=== PATIENT | male | born 1985 | race Caucasian/White ===

== ENCOUNTER 2017-09-22 12:33 | Emergency (ER) | payer MEDICAID ==
--- NOTE | 2017-09-22 13:14 | EDM.PDOC ---
ED HPI GENERAL MEDICAL PROBLEM - General Chief Complaint: Skin Complaint Stated Complaint: SKIN RASH Time Seen by Provider: 09/22/17 13:13 Source of Information: Reports: Patient History Limitations: Reports: No Limitations - History of Present Illness INITIAL COMMENTS - FREE TEXT/NARRATIVE: pt arrived with a rash between his fingers ans some areas on his lega. He has had multiple episodes of scabies and he feels like this is probably scabies again. Onset: Gradual Duration: Day(s): Location: Reports: Upper Extremity, Left, Upper Extremity, Right, Lower Extremity, Left, Lower Extremity, Right Associated Symptoms: Reports: No Other Symptoms - Related Data Allergies Allergy/AdvReac Type Severity Reaction Status Date / Time No Known Allergies Allergy Verified 09/22/17 13:09 Home Meds: Home Meds NK [No Known Home Meds] 09/22/17 [History] ED ROS GENERAL - Review of Systems Review Of Systems: See Below Constitutional: Reports: No Symptoms HEENT: Reports: No Symptoms Respiratory: Reports: No Symptoms Cardiovascular: Reports: No Symptoms Endocrine: Reports: No Symptoms GI/Abdominal: Reports: No Symptoms : Reports: No Symptoms Skin: Reports: Other (pt has a rash on his hands and legs. He ) Neurological: Reports: No Symptoms ED EXAM, SKIN/RASH Exam: See Below Text/Narrative:: pt has a rash between his fingers and he has multiple spots onhis legs. Exam Limited By: No Limitations General Appearance: Alert, Mild Distress Ears: Normal External Exam Nose: Normal Inspection Throat/Mouth: Normal Inspection Head: Atraumatic Neck: Normal Inspection Respiratory/Chest: No Respiratory Distress Skin: Rash, Other (pt has a rash which looks quite typical of scabies. He has been itching it alot. This is between his fingers and spots on his legs. ) Course - Vital Signs Last Recorded V/S: Last Vital Signs Temp 36.6 C 09/22/17 13:10 Pulse 88 09/22/17 13:10 Resp 16 09/22/17 13:10 BP 126/78 09/22/17 13:10 Pulse Ox 97 09/22/17 13:10 Departure - Departure Time of Disposition: 13:18 Disposition: Home, Self-Care 01 Condition: Fair Clinical Impression: Scabies - Discharge Information Referrals: PCP,None [Primary Care Provider] - Forms: ED Department Discharge Care Plan Goals: clean all bedding and throws on chairs used, shower and apply permethrin lotion to the entire body except the face. leave on for 6-7 hours and then reshower repeat the application in 1 week to 10 days.
== END 2017-09-22 13:34 | disposition home or self-care (01) ==
LOC: JP.ED 12:33
DX: B86 Scabies (principal)
CPT/HCPCS: 99283

== ENCOUNTER 2019-11-14 20:28 | Emergency (ER) | payer MEDICAID ==
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
--- NOTE | 2019-11-15 11:05 | CR ---
CHEST: 2 view CLINICAL HISTORY:Dyspnea COMPARISON:None FINDINGS: The heart size, pulmonary vascularity and hilar structures are normal. No infiltrate effusion or pneumothorax is seen. IMPRESSION: No acute cardiopulmonary process.
== END 2019-11-14 22:07 | disposition home or self-care (01) ==
LOC: JP.ED 20:28
DX: S16.1XXA Strain of muscle, fascia and tendon at neck level, initial encounter (principal); S20.211A Contusion of right front wall of thorax, initial encounter; S80.212A Abrasion, left knee, initial encounter; F17.210 Nicotine dependence, cigarettes, uncomplicated; Y04.0XXA Assault by unarmed brawl or fight, initial encounter; Y92.511 Restaurant or cafe as the place of occurrence of the external cause
CPT/HCPCS: 71046; 71046-26; 80305-QW; 81001; 99282; 99283

== ENCOUNTER 2020-10-25 20:54 | Emergency (ER) | payer MEDICARE, MEDICAID ==
[2020-10-25] MEDS ORDERED: Ketorolac 30 MG/ML SDV IM ONE (21:24)
[2020-10-25] MEDS ORDERED: cefTRIAXone 1 GM, Lidocaine 1% 2.1 ML IM ONE ×2 (21:32)
--- NOTE | 2020-10-25 21:34 | EDM.PDOC ---
ED HPI GENERAL MEDICAL PROBLEM - General Chief Complaint: Skin Complaint Stated Complaint: INFECTED FINGER Time Seen by Provider: 10/25/20 21:05 Source of Information: Reports: Patient History Limitations: Reports: No Limitations - History of Present Illness INITIAL COMMENTS - FREE TEXT/NARRATIVE: Rigo is a 35-year-old male presenting to the ED for evaluation of a painful, red, swollen, and exquisitely tender left index finger. Patient states that his symptoms started 2 days ago and are worsening by the day. He thinks he may have had a fishhook embedded in his finger which he quickly removed 3 days ago when he was fishing on [place] [employer]. He denies any other injury to the finger. He denies any fever, chills, numbness or tingling, but does have some reduced range of motion of the finger due to swelling. left 1st digit Pain Score (Numeric/FACES): 8 - Related Data Allergies Allergy/AdvReac Type Severity Reaction Status Date / Time No Known Allergies Allergy Verified 10/25/20 21:14 Home Meds: Home Meds Naproxen [Naprosyn] 500 mg PO Q12HR 30 Days #60 tab 08/31/20 [Rx] Cyclobenzaprine HCl 10 mg PO TID PRN 09/27/20 [History] Ibuprofen [Ibu] 600 mg PO Q6H PRN 09/27/20 [History] Past Medical History HEENT History: Reports: Impaired Vision Genitourinary History: Reports: STD Musculoskeletal History: Reports: Other (See Below) Other Musculoskeletal History: R shoulder, R upper arm, R 1st and 2nd finger pain. 09/28/20 L arm, wrist and bicep pain Neurological History: Reports: Concussion Psychiatric History: Reports: PTSD Dermatologic History: Reports: Other (See Below) Other Dermatologic History: scabies - Infectious Disease History Infectious Disease History: Reports: Chicken Pox, Mononucleosis - Past Surgical History Head Surgeries/Procedures: Reports: None Musculoskeletal Surgical History: Reports: Arthroscopic Procedure, Other (See Below) Other Musculoskeletal Surgeries/Procedures:: R KNEE REPAIR, HERNIATED DISC Social & Family History - Tobacco Use Tobacco Use Status *Q: Never Tobacco User - Caffeine Use Caffeine Use: Reports: Coffee, Energy Drinks - Recreational Drug Use Recreational Drug Use: Yes Drug Use in Last 12 Months: No ED ROS GENERAL - Review of Systems Review Of Systems: See Below Constitutional: Reports: No Symptoms HEENT: Reports: No Symptoms Respiratory: Reports: No Symptoms Cardiovascular: Reports: No Symptoms Endocrine: Reports: No Symptoms GI/Abdominal: Reports: No Symptoms : Reports: No Symptoms Musculoskeletal: Reports: Joint Swelling (Swelling and reduced range of motion on the left index finger DIP.) Skin: Reports: Erythema (Distal left index finger DIP to the tip.) Neurological: Reports: No Symptoms Psychiatric: Reports: No Symptoms Hematologic/Lymphatic: Reports: No Symptoms Immunologic: Reports: No Symptoms ED EXAM, SKIN/RASH Exam: See Below Exam Limited By: No Limitations General Appearance: Alert, No Apparent Distress Extremities: Limited Range of Motion (Limited range of motion of the left index finger at the DIP due to swelling.), Increased Warmth (Increased temperature from the middle phalanx to the tip of the left index finger), Redness (Redness from the middle phalanx to the tip of the left index finger) Neurological: Alert, Oriented, Normal Cognition, No Motor/Sensory Deficits Skin: Warm, Erythema, Increased Warmth, Other (Marked tenderness of the pad of the finger, nailbed, and tip.) Location, Skin: Upper Extremity, Left Characteristics: Erythematous Associated features: Warmth, Tenderness, Swelling, Inflammation Lymphatic: No Adenopathy Course - Vital Signs Last Recorded V/S: Last Vital Signs Temp 36.7 C 10/25/20 21:09 Pulse 86 10/25/20 21:09 Resp 16 10/25/20 21:09 BP 122/76 10/25/20 21:09 Pulse Ox 95 10/25/20 21:09 - Orders/Labs/Meds Meds: Medications Discontinued Medications Generic Name Dose Route Start Last Admin Trade Name Everq PRN Reason Stop Dose Admin Ceftriaxone Sodium 1 gm/ 0 gm 10/25/20 21:32 10/25/20 21:46 Lidocaine HCl 2.1 ml IM 10/25/20 21:33 1 inj ONETIME ONE Administration Ketorolac Tromethamine 30 mg 10/25/20 21:24 10/25/20 21:47 Toradol IM 10/25/20 21:25 30 mg ONETIME ONE Administration - Re-Assessments/Exams Free Text/Narrative Re-Assessment/Exam: 10/25/20 21:36 it appears the patient has a developing cellulitis in the soft tissue of the distal half of the left index finger. There is no evidence at this time that this is a developing felon. We will start the patient on Rocephin 1 g IM followed by ceftriaxone 500 mg 3 times daily for 7 days. I will also put him on Toradol 10 mg 4 times daily for pain control. Indications to return to the ED were discussed and patient was discharged in satisfactory condition. Departure - Departure Time of Disposition: 22:20 Disposition: Home, Self-Care 01 Clinical Impression: Cellulitis of index finger - Discharge Information *PRESCRIPTION DRUG MONITORING PROGRAM REVIEWED*: Not Applicable *COPY OF PRESCRIPTION DRUG MONITORING REPORT IN PATIENT NISHA: Not Applicable Instructions: Cellulitis, Adult, Fingertip Infection Referrals: PCP,None [Primary Care Provider] - Forms: ED Department Discharge Care Plan Goals: I am starting you on cephalexin 500 mg 3 times a day for the next 7 days. Your prescription is in the [facility] machine. In addition, I have prescribed Toradol 10 mg 4 times a day as needed for pain control. I anticipate that this will take a couple of days to start to see improvement. It may actually get worse over the next 24 hours before it starts to improve. Please return to the ED if you have marked increase in pain, numbness of the fingertip, worsening swelling, paleness or blueness of the fingertip. Sepsis Event Note (ED) - Evaluation Sepsis Screening Result: No Definite Risk - Focused Exam Vital Signs: Vital Signs Temp Pulse Resp BP Pulse Ox 10/25/20 21:09 36.7 C 86 16 122/76 95 10/25/20 21:07 36.7 C 86 16 122/76 95 - Problem List & Annotations (1) Cellulitis of index finger SNOMED Code(s): 34381292 Code(s): L03.019 - CELLULITIS OF UNSPECIFIED FINGER Status: Acute Priority: Medium Current Visit: Yes Qualifiers: Laterality: left Qualified Code(s): L03.012 - Cellulitis of left finger - Problem List Review Problem List Initiated/Reviewed/Updated: Yes
== END 2020-10-25 22:20 | disposition home or self-care (01) ==
LOC: JP.ED 20:54
DX: L03.012 Cellulitis of left finger (principal)
CPT/HCPCS: 96372; 99283; J0696; J1885

== ENCOUNTER 2020-10-31 19:07 | Emergency (ER) | payer MEDICARE, MEDICAID ==
--- NOTE | 2020-10-31 19:50 | EDM.PDOC ---
ED HPI GENERAL MEDICAL PROBLEM - General Chief Complaint: Wound Recheck Stated Complaint: FINGER, IN THE ER 1 WK AGO FOR SAME THING Time Seen by Provider: 10/31/20 19:35 Source of Information: Reports: Patient History Limitations: Reports: No Limitations - History of Present Illness INITIAL COMMENTS - FREE TEXT/NARRATIVE: 35-year-old male with persistent infection along the radial aspect of his index finger on the left hand. He was seen over a week ago and placed on cephalexin. He is concerned that he has only 1 pill of antibiotic left and its not completely healed. He is still getting a small amount of drainage off and on. Onset: Gradual Associated Symptoms: Reports: No Other Symptoms. Denies: Fever/Chills - Related Data Allergies Allergy/AdvReac Type Severity Reaction Status Date / Time No Known Allergies Allergy Verified 10/31/20 19:26 Home Meds: Home Meds Naproxen [Naprosyn] 500 mg PO Q12HR 30 Days #60 tab 08/31/20 [Rx] Cyclobenzaprine HCl 10 mg PO TID PRN 09/27/20 [History] Ibuprofen [Ibu] 600 mg PO Q6H PRN 09/27/20 [History] Past Medical History HEENT History: Reports: Impaired Vision Genitourinary History: Reports: STD Musculoskeletal History: Reports: Other (See Below) Other Musculoskeletal History: R shoulder, R upper arm, R 1st and 2nd finger pain. 09/28/20 L arm, wrist and bicep pain Neurological History: Reports: Concussion Psychiatric History: Reports: PTSD Dermatologic History: Reports: Other (See Below) Other Dermatologic History: scabies - Infectious Disease History Infectious Disease History: Reports: Chicken Pox, Mononucleosis - Past Surgical History Head Surgeries/Procedures: Reports: None Musculoskeletal Surgical History: Reports: Arthroscopic Procedure, Other (See Below) Other Musculoskeletal Surgeries/Procedures:: R KNEE REPAIR, HERNIATED DISC Social & Family History - Tobacco Use Tobacco Use Status *Q: Never Tobacco User - Caffeine Use Caffeine Use: Reports: Coffee - Recreational Drug Use Recreational Drug Use: Yes Drug Use in Last 12 Months: Yes Recreational Drug Type: Reports: Marijuana/Hashish Recreational Drug Use Frequency: Daily ED ROS GENERAL - Review of Systems Review Of Systems: See Below Constitutional: Denies: Fever, Chills, Malaise HEENT: Reports: No Symptoms Respiratory: Reports: No Symptoms GI/Abdominal: Reports: No Symptoms Skin: Reports: Erythema (Erythema around the radial aspect of the index finger) ED EXAM, SKIN/RASH Exam: See Below Exam Limited By: No Limitations General Appearance: Alert, No Apparent Distress Respiratory/Chest: No Respiratory Distress Cardiovascular: Regular Rate, Rhythm. No: Tachycardia Extremities: Other (There is erythema and tenderness on the radial aspect of the nail on the index finger but it does not extend past the DIP joint and it is not firm or significantly swollen) Neurological: Alert, Oriented Course - Vital Signs Last Recorded V/S: Last Vital Signs Temp 97.7 F 10/31/20 19:34 Pulse 76 10/31/20 19:34 Resp 16 10/31/20 19:34 BP 127/71 10/31/20 19:34 Pulse Ox 96 10/31/20 19:34 - Re-Assessments/Exams Free Text/Narrative Re-Assessment/Exam: 10/31/20 19:50 This patient does have a persistent cellulitis of the distal finger on the left hand, he will be switched to Augmentin 875 twice daily for at least the next 7 days and can recheck if worsening. Departure - Departure Time of Disposition: 19:58 Disposition: Home, Self-Care 01 Clinical Impression: Cellulitis Qualifiers: Site of cellulitis: extremity Site of cellulitis of extremity: finger Laterality: left Qualified Code(s): L03.012 - Cellulitis of left finger - Discharge Information Instructions: Cellulitis, Adult Referrals: PCP,None [Primary Care Provider] - Forms: ED Department Discharge Care Plan Goals: Start Augmentin tonight with food twice daily, you do not have to take the last dose of cephalexin. Soaking your finger in warm water may be helpful. Anti- inflammatories for pain as needed. Sepsis Event Note (ED) - Evaluation Sepsis Screening Result: No Definite Risk - Focused Exam Vital Signs: Vital Signs Temp Pulse Resp BP Pulse Ox 10/31/20 19:34 97.7 F 76 16 127/71 96 10/31/20 19:26 97.7 F 76 16 127/71 96
== END 2020-10-31 19:59 | disposition home or self-care (01) ==
LOC: JP.ED 19:07
DX: L03.012 Cellulitis of left finger (principal)
CPT/HCPCS: 99283

== ENCOUNTER 2021-01-27 14:01 | Emergency (ER) | payer MEDICARE, MEDICAID ==
--- NOTE | 2021-01-27 15:00 | EDM.PDOC ---
ED HPI GENERAL MEDICAL PROBLEM - General Chief Complaint: Skin Complaint Stated Complaint: RASH ON FACE Time Seen by Provider: 01/27/21 14:13 Source of Information: Reports: Patient - History of Present Illness INITIAL COMMENTS - FREE TEXT/NARRATIVE: 35 yo male present to ER with face on face and in hair. The rash on face has been present for months, the scalp as long as he can remember. Occasionally itchy - Related Data Allergies Allergy/AdvReac Type Severity Reaction Status Date / Time No Known Allergies Allergy Verified 01/27/21 14:16 Home Meds: Home Meds Cyclobenzaprine HCl 10 mg PO TID PRN 09/27/20 [History] Aspirin 1 tab PO DAILY 01/27/21 [History] Past Medical History HEENT History: Reports: Impaired Vision Genitourinary History: Reports: STD Musculoskeletal History: Reports: Other (See Below) Other Musculoskeletal History: R shoulder, R upper arm, R 1st and 2nd finger pain. 09/28/20 L arm, wrist and bicep pain Neurological History: Reports: Concussion Psychiatric History: Reports: PTSD Dermatologic History: Reports: Other (See Below) Other Dermatologic History: scabies - Infectious Disease History Infectious Disease History: Reports: Chicken Pox, Mononucleosis - Past Surgical History Head Surgeries/Procedures: Reports: None Musculoskeletal Surgical History: Reports: Arthroscopic Procedure, Other (See Below) Other Musculoskeletal Surgeries/Procedures:: R KNEE REPAIR, HERNIATED DISC neck fussion Social & Family History - Tobacco Use Tobacco Use Status *Q: Never Tobacco User - Caffeine Use Caffeine Use: Reports: Coffee ED ROS GENERAL - Review of Systems Review Of Systems: See Below Constitutional: Denies: Fever, Chills Respiratory: Denies: Shortness of Breath, Wheezing Cardiovascular: Denies: Chest Pain ED EXAM, SKIN/RASH Exam: See Below Exam Limited By: No Limitations General Appearance: Alert, WD/WN, No Apparent Distress Respiratory/Chest: No Respiratory Distress Skin: Other (scaly plagues throughout scalp worse surrounding ears, right face mild erythema ) Course - Vital Signs Last Recorded V/S: Last Vital Signs Temp 36.5 C 01/27/21 14:26 Pulse 88 01/27/21 14:26 Resp 14 01/27/21 14:26 BP 125/86 01/27/21 14:26 Pulse Ox 96 01/27/21 14:26 Departure - Departure Time of Disposition: 14:56 Disposition: Home, Self-Care 01 Condition: Good Clinical Impression: Seborrheic dermatitis - Discharge Information *PRESCRIPTION DRUG MONITORING PROGRAM REVIEWED*: Not Applicable *COPY OF PRESCRIPTION DRUG MONITORING REPORT IN PATIENT NISHA: Not Applicable Instructions: Seborrheic Dermatitis, Adult Referrals: PCP,None [Primary Care Provider] - Forms: ED Department Discharge Additional Instructions: selsium blue shampoo at least 3 times per week as package directs apply antifungal ketoconazole to face twice daily through 7 days post rash resolution Sepsis Event Note (ED) - Evaluation Sepsis Screening Result: No Definite Risk - Focused Exam Vital Signs: Vital Signs Temp Pulse Resp BP Pulse Ox 01/27/21 14:26 36.5 C 88 14 125/86 96
== END 2021-01-27 15:05 | disposition home or self-care (01) ==
LOC: JP.ED 14:01
DX: L21.9 Seborrheic dermatitis, unspecified (principal); Z79.82 Long term (current) use of aspirin
CPT/HCPCS: 99282

== ENCOUNTER 2021-02-10 14:16 | Emergency (ER) | payer MEDICARE, MEDICAID ==
--- NOTE | 2021-02-10 15:05 | EDM.PDOC ---
ED HPI GENERAL MEDICAL PROBLEM - General Chief Complaint: Neck Problem Stated Complaint: HAND AND NECK IN PAIN Time Seen by Provider: 02/10/21 14:40 Source of Information: Reports: Patient, RN. Denies: Old Records History Limitations: Reports: Other (incomplete records) - History of Present Illness INITIAL COMMENTS - FREE TEXT/NARRATIVE: 35 yo male recently had surgery in [place] in his neck for a herniated disc. Chevy Palmer is his primary. Rigo has had lingering L arm sx's since his surgery that the surgeon has tried to reassure him will get better in time. His restrictions were recently lessened and so yesterday he was pretty active. At one point yesterday he tried to throw a frisbee with his L hand and developed a pain in the area of his neck incision. He is very anxious and so comes in today looking for reassurance. He says he is not looking for medication. Onset: Sudden Onset Date: 02/09/21 Duration: Hour(s):, Constant Location: Reports: Neck Quality: Reports: Burning (incision site) Severity: Mild Improves with: Reports: None Worsens with: Reports: None Context: Reports: Other (See HPI) Associated Symptoms: Reports: Other (ache down L arm to his hand) Treatments COMMUNITY SERVICES COORDINATOR: Reports: Other (see below) (none) - Related Data Allergies Allergy/AdvReac Type Severity Reaction Status Date / Time No Known Allergies Allergy Verified 02/10/21 14:29 Home Meds: Home Meds Cyclobenzaprine HCl 10 mg PO TID PRN 09/27/20 [History] Aspirin 1 tab PO DAILY 01/27/21 [History] Acetaminophen [Tylenol] 650 mg PO Q4HR PRN 02/05/21 [History] Multivitamin [Multiple Vitamins] 1 tab PO DAILY 02/05/21 [History] Past Medical History HEENT History: Reports: Impaired Vision Genitourinary History: Reports: STD Musculoskeletal History: Reports: Other (See Below) Other Musculoskeletal History: R shoulder, R upper arm, R 1st and 2nd finger pain. 09/28/20 L arm, wrist and bicep pain Neurological History: Reports: Concussion Psychiatric History: Reports: PTSD Dermatologic History: Reports: Other (See Below) Other Dermatologic History: scabies - Infectious Disease History Infectious Disease History: Reports: Chicken Pox, Mononucleosis - Past Surgical History Head Surgeries/Procedures: Reports: None Neurological Surgical History: Reports: C-Spine, Discectomy, Spinal Fusion Musculoskeletal Surgical History: Reports: Arthroscopic Procedure, Other (See Below) Other Musculoskeletal Surgeries/Procedures:: R KNEE REPAIR, HERNIATED DISC neck fussion Dermatological Surgical History: Reports: None Social & Family History - Tobacco Use Tobacco Use Status *Q: Never Tobacco User Second Hand Smoke Exposure: No - Caffeine Use Caffeine Use: Reports: None - Recreational Drug Use Recreational Drug Use: No ED ROS GENERAL - Review of Systems Review Of Systems: See Below Constitutional: Reports: No Symptoms Musculoskeletal: Reports: Neck Pain, Arm Pain (left), Hand Pain (left) Neurological: Reports: Other (? achiness in his LUE) ED EXAM, UPPER BACK/NECK PAIN - Physical Exam Exam: See Below Exam Limited By: No Limitations General Appearance: Alert, WD/WN, No Apparent Distress Neck Exam: Normal Alignment, Normal Inspection, Other (his well healed neck incision is a bit tender, but there is no hematoma behind it. ). No: Limited Range of Motion, Muscle Spasm, Stiff Neck Cardiovascular/Respiratory: Regular Rate, Rhythm Extremities: Normal Inspection, Normal Range of Motion, Non-Tender, No Pedal Edema. No: Pedal Edema Neurologic: nuclear medicine specialist II-XII nml As Tested, No Motor/Sensory Deficits, Alert, Normal Mood/Affect, Oriented x 3 Psychiatric: Normal Affect, Anxious Skin Exam: Normal Color, Warm/Dry Course - Vital Signs Last Recorded V/S: Last Vital Signs Temp 36.7 C 02/10/21 14:33 Pulse 68 02/10/21 14:33 Resp 16 02/10/21 14:33 BP 146/84 H 02/10/21 14:33 Pulse Ox 97 02/10/21 14:33 Departure - Departure Time of Disposition: 15:07 Disposition: Home, Self-Care 01 Condition: Good Clinical Impression: Neck pain - Discharge Information *PRESCRIPTION DRUG MONITORING PROGRAM REVIEWED*: Not Applicable *COPY OF PRESCRIPTION DRUG MONITORING REPORT IN PATIENT NISHA: Not Applicable Referrals: PCP,None [Primary Care Provider] - Additional Instructions: Relative rest over the weekend. Give Chevy Palmer a call on Friday if your symptoms persist. Sepsis Event Note (ED) - Evaluation Sepsis Screening Result: No Definite Risk - Focused Exam Vital Signs: Vital Signs Temp Pulse Resp BP Pulse Ox 02/10/21 14:33 36.7 C 68 16 146/84 H 97 02/10/21 14:28 36.7 C 68 16 146/84 H 97
== END 2021-02-10 15:21 | disposition home or self-care (01) ==
LOC: JP.ED 14:16
DX: M54.2 Cervicalgia (principal); Z79.82 Long term (current) use of aspirin
CPT/HCPCS: 99283

== ENCOUNTER 2021-03-02 22:07 | Emergency (ER) | payer MEDICARE, MEDICAID ==
--- NOTE | 2021-03-03 00:03 | EDM.PDOC ---
ED HPI GENERAL MEDICAL PROBLEM - General Chief Complaint: Lower Extremity Injury/Pain Stated Complaint: INJURED TOE Time Seen by Provider: 03/03/21 00:03 Source of Information: Reports: Patient, RN Notes Reviewed History Limitations: Reports: No Limitations - History of Present Illness INITIAL COMMENTS - FREE TEXT/NARRATIVE: Rigo presents today for complaints of right 4th toe pain that started after he struck a dumb-william with his foot around [id number]. He states the toe became more painful after a while. He did try use of some ice but this did not help with the pain. He states he took tylenol for his neck about 12 hours ago and this did not help with his pain too much. He is not able to take NSAIDs status post discectomy of cervical spine. He denies any other injury, trauma, fever, chills, nausea, vomiting or other concerns. Right Toe-Little Pain Score (Numeric/FACES): 8 - Related Data Allergies Allergy/AdvReac Type Severity Reaction Status Date / Time No Known Allergies Allergy Verified 03/02/21 22:53 Home Meds: Home Meds Cyclobenzaprine HCl 10 mg PO TID PRN 09/27/20 [History] Aspirin 1 tab PO DAILY 01/27/21 [History] Acetaminophen [Tylenol] 650 mg PO Q4HR PRN 02/05/21 [History] Multivitamin [Multiple Vitamins] 1 tab PO DAILY 02/05/21 [History] Past Medical History HEENT History: Reports: Impaired Vision Genitourinary History: Reports: STD Musculoskeletal History: Reports: Fracture, Other (See Below) Other Musculoskeletal History: R shoulder, R upper arm, R 1st and 2nd finger pain. 09/28/20 L arm, wrist and bicep pain Neurological History: Reports: Concussion Psychiatric History: Reports: PTSD Dermatologic History: Reports: Other (See Below) Other Dermatologic History: scabies - Infectious Disease History Infectious Disease History: Reports: Chicken Pox, Mononucleosis - Past Surgical History Head Surgeries/Procedures: Reports: None Neurological Surgical History: Reports: C-Spine, Discectomy, Spinal Fusion Musculoskeletal Surgical History: Reports: Arthroscopic Procedure, Other (See Below) Other Musculoskeletal Surgeries/Procedures:: R KNEE REPAIR, HERNIATED DISC neck fussion Dermatological Surgical History: Reports: None Social & Family History - Tobacco Use Tobacco Use Status *Q: Never Tobacco User - Caffeine Use Caffeine Use: Reports: Coffee - Recreational Drug Use Recreational Drug Use: Yes Recreational Drug Type: Reports: Marijuana/Hashish Recreational Drug Use Frequency: Daily Review of Systems - Review of Systems Review Of Systems: See Below Constitutional: Reports: No Symptoms Eyes: Reports: No Symptoms Ears: Reports: No Symptoms Nose: Reports: No Symptoms Mouth/Throat: Reports: No Symptoms Respiratory: Reports: No Symptoms Cardiovascular: Reports: No Symptoms GI/Abdominal: Reports: No Symptoms Genitourinary: Reports: No Symptoms Musculoskeletal: Reports: Other (right 4th toe pain) Skin: Reports: Bruising (to right 4th toe) Neurological: Reports: No Symptoms Psychiatric: Reports: No Symptoms ED EXAM, GENERAL - Physical Exam Exam: See Below Exam Limited By: No Limitations General Appearance: Alert, WD/WN, No Apparent Distress Respiratory/Chest: No Respiratory Distress, Lungs Clear, Normal Breath Sounds, No Accessory Muscle Use, Chest Non-Tender. No: Crackles, Rales, Rhonchi, Wheezing Cardiovascular: Normal Peripheral Pulses, Regular Rate, Rhythm, No Edema, No Gallop, No Murmur, No Rub Peripheral Pulses: 4+: Dorsalis Pedis (L), Dorsalis Pedis (R) Extremities: No Pedal Edema, Normal Capillary Refill, Limited Range of Motion (to right 4th toe due to pain), Other (dark purple ecchymosis to right 4th toe, no deformity noted). No: Increased Warmth Neurological: Alert, Oriented, Normal Cognition, No Motor/Sensory Deficits, Other (Atalgic gait due to pain of right 4th toe injury) Psychiatric: Normal Affect, Normal Mood Skin Exam: Warm, Dry, Intact, Ecchymosis. No: Cyanosis, Erythema, Increased Warmth, Pallor, Petechiae, Rash Lymphatic: No Adenopathy Course - Vital Signs Last Recorded V/S: Last Vital Signs Temp 36.4 C 03/02/21 22:54 Pulse 76 03/02/21 22:54 Resp 16 03/02/21 22:54 BP 136/88 03/02/21 22:54 Pulse Ox 96 03/02/21 22:54 - Orders/Labs/Meds Orders: Active Orders 24 hr Category Date Time Status Toes Fourth Digit Rt T8 [CR] Stat Exams 03/03/21 00:11 Taken Meds: Medications Discontinued Medications Generic Name Dose Route Start Last Admin Trade Name Freq PRN Reason Stop Dose Admin Acetaminophen 1,000 mg 03/03/21 00:11 03/03/21 00:16 Acetaminophen 500 Mg Tab PO 03/03/21 00:12 1,000 mg ONETIME ONE Administration Hydrocodone Bitart/Acetaminophen 1 tab 03/03/21 01:05 03/03/21 01:13 Acetaminophen/Hydrocodone 325-5 Mg Tab PO 03/03/21 01:06 1 tab ONETIME ONE Administration - Radiology Interpretation Free Text/Narrative:: X-ray wet read and reviewed, noted Fracture of 4th distal phalanx of toe of right foot, Closed fracture of phalanx of foot - Re-Assessments/Exams Free Text/Narrative Re-Assessment/Exam: 03/03/21 01:00 patient reports tylenol did not really help his pain, he complains that he will not be able to sleep. We will provide hydrocodone. He was advised to not drive after taking hydrocodone. Departure - Departure Time of Disposition: 01:05 Disposition: Home, Self-Care 01 Condition: Good Clinical Impression: Fracture of distal phalanx of toe of right foot, Closed fracture of phalanx of foot - Discharge Information *PRESCRIPTION DRUG MONITORING PROGRAM REVIEWED*: Yes *COPY OF PRESCRIPTION DRUG MONITORING REPORT IN PATIENT NISHA: Yes Instructions: Toe Fracture Referrals: Chevy Palmer NP [Primary Care Provider] - Forms: ED Department Discharge Additional Instructions: You have been evaluated and treated for closed distal fracture of right 4th phalanx, slightly displaced. Wear post-op shoe to help protect toe. You can genaro tape the toe to the next toe for stability. Avoid further injury. Rest, ice and elevate the foot. Take tylenol as needed for pain. Follow up with primary for any worsening, issues or concerns. Follow up with podiatry for no improvement, issues or concerns in 7 to 10 days. Return as needed for any issues or concerns. Sepsis Event Note (ED) - Evaluation Sepsis Screening Result: No Definite Risk - Focused Exam Vital Signs: Vital Signs Temp Pulse Resp BP Pulse Ox 03/02/21 22:54 36.4 C 76 16 136/88 96 03/02/21 22:48 36.4 C 76 16 136/88 96 - My Orders Last 24 Hours: My Active Orders 03/03/21 00:11 Toes Fourth Digit Rt T8 [CR] Stat - Assessment/Plan Last 24 Hours: My Active Orders 03/03/21 00:11 Toes Fourth Digit Rt T8 [CR] Stat Assessment:: Fracture of distal phalanx of toe of right foot, Closed fracture of phalanx of foot Plan: Patient evaluated and treated for closed distal fracture of right 4th phalanx, slightly displaced. Wear post-op shoe to help protect toe. You can genaro tape the toe to the next toe for stability. Avoid further injury. Rest, ice and elevate the foot. Take tylenol as needed for pain. Follow up with primary for any worsening, issues or concerns. Follow up with podiatry for no improvement, issues or concerns in 7 to 10 days. Return as needed for any issues or concerns.
[2021-03-03] MEDS ORDERED: Acetaminophen 500 MG Tab PO ONE (00:11)
[2021-03-03] MEDS ORDERED: Acetaminophen/HYDROcodone 325-5 MG Tab PO ONE (01:05)
--- NOTE | 2021-03-05 10:10 | CR ---
Toes Fourth Digit Rt T8 CLINICAL HISTORY: Trauma FINDINGS: There is a fracture through the base of the fourth distal phalanx. There is articular surface involvement. IMPRESSION: Fracture fourth distal phalanx
== END 2021-03-03 01:24 | disposition home or self-care (01) ==
LOC: JP.ED 22:07
DX: S92.531A Displaced fracture of distal phalanx of right lesser toe(s), initial encounter for closed fracture (principal); W22.8XXA Striking against or struck by other objects, initial encounter
CPT/HCPCS: 73660; 99283; A9270

== ENCOUNTER 2022-05-03 17:07 | Emergency (ER) | payer MEDICARE, MEDICAID | END 2022-05-03 18:16 | disposition home or self-care (01) | LOC: JP.ED 17:07 | DX: M54.42 Lumbago with sciatica, left side (principal); M54.41 Lumbago with sciatica, right side; Z88.8 Allergy status to other drugs, medicaments and biological substances | CPT/HCPCS: 99283 ==

== ENCOUNTER 2023-03-02 22:00 | Emergency (ER) | payer MEDICARE, MEDICAID | END 2023-03-02 23:20 | disposition left against medical advice (07) | LOC: JP.ED 22:00 | DX: Z53.21 Procedure and treatment not carried out due to patient leaving prior to being seen by health care provider (principal) ==

== ENCOUNTER 2023-04-19 16:35 | Emergency (ER) | payer MEDICARE, MEDICAID | END 2023-04-19 17:35 | disposition left against medical advice (07) | LOC: JP.ED 16:35 | DX: H92.03 Otalgia, bilateral (principal); Z87.891 Personal history of nicotine dependence; Z88.8 Allergy status to other drugs, medicaments and biological substances | CPT/HCPCS: 99283; 99285 ==

== ENCOUNTER 2023-08-11 09:10 | Emergency (ER) | payer MEDICARE, MEDICAID ==
[2023-08-11] MEDS ORDERED: Ketorolac 30 MG/ML SDV IM ONE (11:01)
== END 2023-08-11 12:18 | disposition home or self-care (01) ==
LOC: JP.ED 09:10
DX: M48.061 Spinal stenosis, lumbar region without neurogenic claudication (principal); Z88.8 Allergy status to other drugs, medicaments and biological substances
CPT/HCPCS: 96372; 99283; J1885

== ENCOUNTER 2024-05-16 14:09 | Emergency (ER) | payer MEDICARE, MEDICAID ==
[2024-05-16] MEDS: Lidocaine 4% 1 each Patch TOP PRN (17:09)
[2024-05-16] MEDS: Ketorolac 30 MG/ML SDV IM ONE (17:11)
== END 2024-05-16 17:30 | disposition home or self-care (01) ==
LOC: JP.ED 14:09
DX: M54.50 Low back pain, unspecified (principal); G89.29 Other chronic pain; Z88.8 Allergy status to other drugs, medicaments and biological substances
CPT/HCPCS: 96372; 99283; J1885

== ENCOUNTER 2024-05-18 11:35 | Emergency (ER) | payer MEDICARE, MEDICAID | END 2024-05-18 13:09 | disposition home or self-care (01) | LOC: JP.ED 11:35 | DX: M54.41 Lumbago with sciatica, right side (principal); G89.29 Other chronic pain; Z88.8 Allergy status to other drugs, medicaments and biological substances | CPT/HCPCS: 99283 ==

== ENCOUNTER 2024-05-19 09:02 | Emergency (ER) | payer MEDICARE, MEDICAID ==
[2024-05-19] MEDS ORDERED: Naloxone 0.4 MG/ML SDV IVPUSH PRN (10:37)
[2024-05-19] MEDS: HYDROmorphone 1 MG/ML Syringe IM ONE (10:44)
[2024-05-19] MEDS: methylPREDNISolone Sodium Succinate 125 MG/2 ML SDV IM ONE (10:45)
== END 2024-05-19 12:39 | disposition home or self-care (01) ==
LOC: JP.ED 09:02
DX: M48.062 Spinal stenosis, lumbar region with neurogenic claudication (principal); Z79.899 Other long term (current) drug therapy; Z88.8 Allergy status to other drugs, medicaments and biological substances
CPT/HCPCS: 96372; 99283; J1170; J2919

== ENCOUNTER 2024-05-29 16:53 | Emergency (ER) | payer MEDICARE, MEDICAID ==
[2024-05-29] MEDS: oxyCODONE 5 MG Tab PO ONE (17:57)
== END 2024-05-29 18:05 | disposition home or self-care (01) ==
LOC: JP.ED 16:53
DX: M54.50 Low back pain, unspecified (principal); G89.29 Other chronic pain; Z88.6 Allergy status to analgesic agent
CPT/HCPCS: 99283; A9270

== ENCOUNTER 2024-06-30 17:13 | Emergency (ER) | payer MEDICARE, MEDICAID | END 2024-06-30 18:48 | disposition home or self-care (01) | LOC: JP.ED 17:13 | DX: G89.29 Other chronic pain (principal); M54.50 Low back pain, unspecified; Z88.6 Allergy status to analgesic agent | CPT/HCPCS: 99283 ==

== ENCOUNTER 2025-06-02 10:04 | Emergency (ER) | payer MEDICARE, MEDICAID | END 2025-06-02 10:39 | disposition home or self-care (01) | LOC: JP.ED 10:04 | DX: G89.29 Other chronic pain (principal); Z88.8 Allergy status to other drugs, medicaments and biological substances; Z79.899 Other long term (current) drug therapy | CPT/HCPCS: 99283 ==

== ENCOUNTER 2025-06-02 11:15 | Emergency (ER) | payer MEDICARE, MEDICAID | END 2025-06-02 11:35 | disposition home or self-care (01) | LOC: JP.ED 11:15 | DX: F11.29 Opioid dependence with unspecified opioid-induced disorder (principal); Z88.8 Allergy status to other drugs, medicaments and biological substances; Z91.018 Allergy to other foods; Z79.899 Other long term (current) drug therapy | CPT/HCPCS: 99283 ==

== ENCOUNTER 2025-06-13 13:12 | Emergency (ER) | payer MEDICARE, MEDICAID | END 2025-06-13 17:27 | disposition home or self-care (01) | LOC: JP.ED 13:12 | DX: S99.921A Unspecified injury of right foot, initial encounter (principal); R07.81 Pleurodynia; Z88.8 Allergy status to other drugs, medicaments and biological substances; Z79.899 Other long term (current) drug therapy; Y04.2XXA Assault by strike against or bumped into by another person, initial encounter | CPT/HCPCS: 71101-26-RT; 71101-RT; 73610-26-RT; 73610-RT; 73630-26-RT; 73630-RT; 99284 ==